=== PATIENT | male | born 1965 | race Caucasian/White ===

== ENCOUNTER 2025-01-11 14:38 | Emergency (ER) | payer OTHER ==
[2025-01-11 14:47] VITALS: RESP 18
--- NOTE | 2025-01-11 14:58 | ED ---
Seizure HPI - General Chief Complaint: Seizure Stated Complaint: Seizure Time Seen by Provider: 01/11/25 14:49 Source: patient, RN notes reviewed Mode of arrival: EMS Limitations: no limitations - History of Present Illness Initial Comments: 59-year-old male with history of epilepsy and polysubstance abuse presenting to the emergency department via EMS from [facility] with concerns for a seizure. States that he had a Absent unwitnessed seizure this morning and he states that he had 1 yesterday evening as well. On first evaluation the patient is requesting discharge back to [facility]. States history of seizures and states that he normally does not take his antiepileptic medications while he is "using "and believes that he may not have taken these medications in the past 4 to 6 weeks. States that he does have the medications that have been administered to him while he has been at [facility]. Last where he normally drinks a pint to 1/5 of vodka per day. Currently patient states that he is feeling okay and endorses a mild headache. He denies fevers, chills, nausea, visual disturbances, dyspnea, abdominal pain. - Related Data Home Medications Medication Instructions Recorded Confirmed Acetaminophen Tab [Tylenol] 650 mg PO Q4H PRN 01/11/25 01/11/25 Apixaban [Eliquis] 5 mg PO BID 01/11/25 01/11/25 Ativan Injection 1 - 2 mg IM Q4H 01/11/25 01/11/25 Atorvastatin [Lipitor] 40 mg PO HS 01/11/25 01/11/25 Calcium Phos/D3/Magnesium/Zinc 1 tab PO TID PRN 01/11/25 01/11/25 [Yqeubdb-Yqg-Tqqn-Vitamin D3] Cariprazine HCl [Vraylar] 3 mg PO DAILY 01/11/25 01/11/25 Chlorpheniramine Maleate 4 mg PO Q4H PRN 01/11/25 01/11/25 [Chlor-Trimeton] Divalproex ER [Depakote ER] 1,000 mg PO BID 01/11/25 01/11/25 Ferrous Sulfate [Feosol] 325 mg PO Q2D 01/11/25 01/11/25 Furosemide [Lasix] 40 mg PO DAILY 01/11/25 01/11/25 Gabapentin 900 mg PO TID 01/11/25 01/11/25 LORazepam [Ativan] 1 - 2 mg PO Q4H 01/11/25 01/11/25 Loperamide [Imodium] 4 mg PO QID PRN 01/11/25 01/11/25 Metoprolol Tartrate [Lopressor] 100 mg PO BID 01/11/25 01/11/25 Mylanta 30 ml PO Q4H PRN 01/11/25 01/11/25 Topiramate [Topamax] 100 mg PO BID 01/11/25 01/11/25 metFORMIN HCL [Glucophage] 500 mg PO BID 01/11/25 01/11/25 ondansetron HCL [Zofran] 8 mg PO Q6H PRN 01/11/25 01/11/25 traZODone HCL [Desyrel] 50 mg PO HS PRN 01/11/25 01/11/25 Allergies Allergy/AdvReac Type Severity Reaction Status Date / Time Penicillins Allergy Unknown Verified 01/11/25 16:46 Childhood Review of Systems ROS Statement: Those systems with pertinent positive or pertinent negative responses have been documented in the HPI. ROS Other: All systems not noted in ROS Statement are negative. Past Medical History Past Medical History: Diabetes Mellitus, Hyperlipidemia, Hypertension, Seizure Disorder Additional Past Medical History / Comment(s): SVT History of Any Multi-Drug Resistant Organisms: None Reported Past Surgical History: No Surgical Hx Reported Past Psychological History: Anxiety Smoking Status: Current every day smoker Past Alcohol Use History: Abuse, Daily Past Drug Use History: Cocaine, Heroin, Marijuana, Methamphetamine General Exam Limitations: no limitations General appearance: alert, in no apparent distress Eye exam: Present: normal appearance, PERRL, EOMI. Absent: scleral icterus, conjunctival injection, periorbital swelling Neck exam: Present: normal inspection. Absent: tenderness, meningismus, lymphadenopathy Respiratory exam: Present: normal lung sounds bilaterally. Absent: respiratory distress, wheezes, rales, rhonchi, stridor Cardiovascular Exam: Present: regular rate, normal rhythm, normal heart sounds. Absent: systolic murmur, diastolic murmur, rubs, gallop, clicks GI/Abdominal exam: Present: soft, normal bowel sounds. Absent: distended, tenderness, guarding, rebound, rigid Extremities exam: Present: normal inspection, full ROM, normal capillary refill. Absent: tenderness, pedal edema, joint swelling, calf tenderness Back exam: Present: normal inspection Neurological exam: Present: alert, oriented X3, CN II-XII intact Skin exam: Present: warm, dry, intact, normal color. Absent: rash Course Vital Signs 01/11/25 01/11/25 01/11/25 14:41 16:20 18:04 Temperature 97.8 F 98.1 F Pulse Rate 104 H 96 98 Respiratory 18 18 18 Rate Blood Pressure 128/102 117/83 130/95 O2 Sat by Pulse 98 97 99 Oximetry Medical Decision Making - Medical Decision Making Was pt. sent in by a medical professional or institution (, PA, [employer]IM[employer] CASHIER, urgent care, hospital, or senior care...) When possible be specific @ -No Did you speak to anyone other than the patient for history (EMS, parent, family, police, friend...)? What history was obtained from this source @ -No Did you review nursing and triage notes (agree or disagree)? Why? @ -I reviewed and agree with nursing and triage notes Were old charts reviewed (outside hosp., previous admission, EMS record, old EKG, old radiological studies, urgent care reports/EKG's, senior care records)? Report findings @ -No old charts were reviewed Differential Diagnosis (chest pain, altered mental status, abdominal pain women, abdominal pain men, vaginal bleeding, weakness, fever, dyspnea, syncope, headache, dizziness, GI bleed, back pain, seizure, CVA, palpatations, mental health, musculoskeletal)? @ -Differential Seizure: Recurrent seizure disorder, febrile seizure, alcohol withdrawal, stimulants, meningitis, encephalitis, intercranial hemorrhage, intracranial tumor, stroke, eclampsia, thyrotoxicosis, hypocalcemia, hyponatremia, hypernatremia, hypomagnesemia, psychogenic, this is not meant to be an all-inclusive list. EKG interpreted by me (3pts min.). @ -Completed at 1446 reveals sinus arrhythmia with a noted ventricular rate of 102, QRS 137, QT 418, QTc 477. X-rays interpreted by me (1pt min.). @ -None done CT interpreted by me (1pt min.). @ -None done U/S interpreted by me (1pt. min.). @ -None done What testing was considered but not performed or refused? (CT, X-rays, U/S, labs)? Why? @ -CT imaging of the brain was considered but deferred as patient does have a history of seizures and has been off his medications. What meds were considered but not given or refused? Why? @ -None Did you discuss the management of the patient with other professionals (professionals i.e. , PA, [employer] C[employer]IER, lab, RT, psych nurse, psych social worker, office support, teacher, commissioned defence force officer, telephonic case manager)? Give summary @ -No Was smoking cessation discussed for >3mins.? @ -No Was critical care preformed (if so, how long)? @ -No Were there social determinants of health that impacted care today? How? (Homelessness, low income, unemployed, alcoholism, drug addiction, transportation, low edu. Level, literacy, decrease access to med. care, custodial, rehab)? @ -No Was there de-escalation of care discussed even if they declined (Discuss DNR or withdrawal of care, Hospice)? DNR status @ -No What co-morbidities impacted this encounter? (DM, HTN, Smoking, COPD, CAD, Cancer, CVA, ARF, Chemo, Hep., AIDS, mental health diagnosis, sleep apnea, morbid obesity)? @ -None Was patient admitted / discharged? Hospital course, mention meds given and route, prescriptions, significant lab abnormalities, going to OR and other pertinent info. @ -Discharge. 59-year-old male presents emergency department via EMS for complaints of a seizure. Patient is hypertensive on arrival with blood pressure 120/102 overall he is well-appearing in no signs of distress. EKG is in sinus rhythm. Patient is alert and oriented x 4. Patient is provided with IV fluids and a loading dose of Keppra and Ativan. Testing including CBC, CMP, serum alcohol is unremarkable. Patient has mildly low magnesium 1.5 is provided with oral oversupplementation. On reevaluation after fluids and medications patient is resting company examination but is requesting discharge. The patient is comfortable for discharge as he has had no seizures while in the emergency department does have a history of seizures and has been provided with antiepileptic medication as he currently mentation center. Patient's blood pressure has stabilized to 130/95. Case has been discussed with my attending Dr. Hicks Undiagnosed new problem with uncertain prognosis? @ -No Drug Therapy requiring intensive monitoring for toxicity (Heparin, Nitro, Insulin, Cardizem)? @ -No Were any procedures done? @ -No Diagnosis/symptom? @ -seizure in a patient with known epilepsy Acute, or Chronic, or Acute on Chronic? @ -acute Uncomplicated (without systemic symptoms) or Complicated (systemic symptoms)? @ -uncomplicated Side effects of treatment? @ -No Exacerbation, Progression, or Severe Exacerbation? @ -No Poses a threat to life or bodily function? How? (Chest pain, USA, GA, pneumonia, PE, COPD, DKA, ARF, appy, cholecystitis, CVA, Diverticulitis, Homicidal, Suicidal, threat to staff... and all critical care pts) @ -No - Lab Data Result diagrams: 01/11/25 14:45 01/11/25 14:45 Lab Results 01/11/25 01/11/25 Range/Units 14:45 14:45 WBC 7.11 (4.50-10.00) 10*3/uL RBC 5.07 (4.40-5.60) 10*6/uL Hgb 14.2 (13.0-17.0) g/dL Hct 44.8 (39.6-50.0) % MCV 88.4 (80.0-97.0) fL MCH 28.0 (27.0-32.0) pg MCHC 31.7 L (32.0-37.0) g/dL Plt Count 179 (140-440) 10*3/uL MPV 10.4 (9.5-12.2) fL Immature Gran % (Auto) 0.4 % Neutrophils % 59.4 % Lymphocytes % 28.0 % Monocytes % 7.3 % Eosinophils % 4.5 % Basophils % 0.4 % Immature Gran # 0.03 (0.00-0.04) 10*3/uL Neutrophils # 4.22 (1.80-7.70) 10*3/uL Lymphocytes # 1.99 (0.90-5.00) 10*3/uL Monocytes # 0.52 (0.20-1.00) 10*3/uL Eosinophils # 0.32 (0.04-0.35) 10*3/uL Basophils # 0.03 (0.00-0.10) 10*3/uL Sodium 142 (137-145) mmol/L Potassium 3.9 (3.5-5.1) mmol/L Chloride 104 (98-107) mmol/L Carbon Dioxide 31 H (22-30) mmol/L Anion Gap 7 mmol/L BUN 16 (9-20) mg/dL Creatinine 1.06 (0.66-1.25) mg/dL Est GFR (CKD-EPI)AfAm >90 (>60 ml/min/1.73 sqM) Est GFR (CKD-EPI)NonAf 78 (>60 ml/min/1.73 sqM) Glucose 71 L (74-99) mg/dL Calcium 9.8 (8.4-10.2) mg/dL Magnesium 1.5 L (1.6-2.3) mg/dL Total Bilirubin 0.4 (0.2-1.3) mg/dL AST 18 (17-59) U/L ALT 20 (4-49) U/L Alkaline Phosphatase 85 (38-126) U/L Total Protein 6.6 (6.3-8.2) g/dL Albumin 3.9 (3.5-5.0) g/dL Serum Alcohol <10 mg/dL Disposition Clinical Impression: Seizure Disposition: HOME SELF-CARE Condition: Stable Instructions (If sedation given, give patient instructions): Recurrent Seizures in Adults (ED) Additional Instructions: Please return to the Emergency Department if symptoms worsen or any other concerns. Is patient prescribed a controlled substance at d/c from ED?: No Referrals: None,Stated [Primary Care Provider] - 1-2 days Time of Disposition: 17:37
[2025-01-11 15:02] LABS: Basophils # (A) 0.03 10*3/uL (0.00-0.10); Basophils % (A) 0.4 %; Eosinophils # (A) 0.32 10*3/uL (0.04-0.35); Eosinophils % (A) 4.5 %; HCT 44.8 % (39.6-50.0); HGB 14.2 g/dL (13.0-17.0); Lymphocytes # (A) 1.99 10*3/uL (0.90-5.00); MCHC 31.7 g/dL (32.0-37.0); MCV 88.4 fL (80.0-97.0); Mean Platelet Volume 10.4 fL (9.5-12.2); Monocytes # (A) 0.52 10*3/uL (0.20-1.00); Monocytes % (A) 7.3 %; Neutrophils # (A) 4.22 10*3/uL (1.80-7.70); Neutrophils % (A) 59.4 %; Platelet Count 179 10*3/uL (140-440); RBC 5.07 10*6/uL (4.40-5.60); RDW 15.2 % (11.5-14.5); WBC 7.11 10*3/uL (4.50-10.00)
[2025-01-11 15:20] LABS: ALT 20 U/L (4-49); AST 18 U/L (17-59); African American GFR (CKD) >90 (>60 ml/min/1.73 sqM); Albumin 3.9 g/dL (3.5-5.0); Alcohol <10 mg/dL; Alkaline Phosphatase 85 U/L (38-126); Anion Gap 7 mmol/L; Blood Urea Nitrogen 16 mg/dL (9-20); Calcium 9.8 mg/dL (8.4-10.2); Carbon Dioxide 31 mmol/L (22-30); Chloride 104 mmol/L (98-107); Glucose 71 mg/dL (74-99); Magnesium 1.5 mg/dL (1.6-2.3); Non-African American GFR(CKD) 78 (>60 ml/min/1.73 sqM); Potassium 3.9 mmol/L (3.5-5.1); Sodium 142 mmol/L (137-145); Total Bilirubin 0.4 mg/dL (0.2-1.3); Total Protein 6.6 g/dL (6.3-8.2)
[2025-01-11] MEDS: SODIUM CHLORIDE 0.9% 1,000 ML IV STA (15:25)
[2025-01-11] MEDS: LORazepam 1 MG/0.5 ML VIAL IV STA (15:25)
[2025-01-11] MEDS: levETIRAcetam IV 500 MG/5 ML VIAL IVP STA (15:28)
[2025-01-11] MEDS: MAGNESIUM OXIDE 400 MG TAB PO STA (16:33)
[2025-01-11 18:06] VITALS: BP 130/95; PULSE 98; TEMP 98.1
== END 2025-01-11 18:13 | disposition home or self-care (01) ==
LOC: EC 14:38
DX: R56.9 Unspecified convulsions (principal); F17.200 Nicotine dependence, unspecified, uncomplicated; Z88.0 Allergy status to penicillin
CPT/HCPCS: 93005; 80053; 83735; 85025; 99284; 96374; 96375; 96361; G0480; J2060; J1953; 36415; 80320

== ENCOUNTER 2025-01-12 01:37 | Observation (INO) | payer OTHER ==
[2025-01-12 01:49] VITALS: TEMP 97.9
--- NOTE | 2025-01-12 02:41 | ED ---
General Adult HPI - General Chief complaint: Recheck/Abnormal Lab/Rx Stated complaint: Fatigue Time Seen by Provider: 01/12/25 01:42 Source: EMS Mode of arrival: EMS Limitations: altered mental status - History of Present Illness Initial comments: This patient is 59-year-old man who is sent here from [facility] to be evaluated for altered mental status. The patient staying there for rehab. The patient tonight was in bed and staff sent notes stating that they had tried to wake him for evening check and they could barely arouse him. He required vigorous sternal rub to arouse and then he was somewhat combative and resistant to their attempts to wake him. The patient on arrival was more alert. He was able to stand up and go from the EMS stretcher to the bed here. He was able to give a urine specimen. I went and reevaluated him sometime later in the patient was again very somnolent. He would briefly awaken to tactile stimulus, open his eyes and then go back to sleep. He did speak some intelligible words but was not able to appropriately answer questions. - Related Data Home Medications Medication Instructions Recorded Confirmed Acetaminophen Tab [Tylenol] 650 mg PO Q4H PRN 01/11/25 01/11/25 Apixaban [Eliquis] 5 mg PO BID 01/11/25 01/11/25 Ativan Injection 1 - 2 mg IM Q4H 01/11/25 01/11/25 Atorvastatin [Lipitor] 40 mg PO HS 01/11/25 01/11/25 Calcium Phos/D3/Magnesium/Zinc 1 tab PO TID PRN 01/11/25 01/11/25 [Bjtpjdf-Kzw-Acip-Vitamin D3] Cariprazine HCl [Vraylar] 3 mg PO DAILY 01/11/25 01/11/25 Chlorpheniramine Maleate 4 mg PO Q4H PRN 01/11/25 01/11/25 [Chlor-Trimeton] Divalproex ER [Depakote ER] 1,000 mg PO BID 01/11/25 01/11/25 Ferrous Sulfate [Feosol] 325 mg PO Q2D 01/11/25 01/11/25 Furosemide [Lasix] 40 mg PO DAILY 01/11/25 01/11/25 Gabapentin 900 mg PO TID 01/11/25 01/11/25 LORazepam [Ativan] 1 - 2 mg PO Q4H 01/11/25 01/11/25 Loperamide [Imodium] 4 mg PO QID PRN 01/11/25 01/11/25 Metoprolol Tartrate [Lopressor] 100 mg PO BID 01/11/25 01/11/25 Mylanta 30 ml PO Q4H PRN 01/11/25 01/11/25 Topiramate [Topamax] 100 mg PO BID 01/11/25 01/11/25 metFORMIN HCL [Glucophage] 500 mg PO BID 01/11/25 01/11/25 ondansetron HCL [Zofran] 8 mg PO Q6H PRN 01/11/25 01/11/25 traZODone HCL [Desyrel] 50 mg PO HS PRN 01/11/25 01/11/25 Allergies Allergy/AdvReac Type Severity Reaction Status Date / Time Penicillins Allergy Unknown Verified 01/11/25 16:46 Childhood Review of Systems ROS Statement: Those systems with pertinent positive or pertinent negative responses have been documented in the HPI. ROS Other: All systems not noted in ROS Statement are negative. Past Medical History Past Medical History: Diabetes Mellitus, Hyperlipidemia, Hypertension, Seizure Disorder Additional Past Medical History / Comment(s): SVT History of Any Multi-Drug Resistant Organisms: None Reported Past Surgical History: No Surgical Hx Reported Past Psychological History: Anxiety Smoking Status: Current every day smoker Past Alcohol Use History: Abuse, Daily Past Drug Use History: Cocaine, Heroin, Marijuana, Methamphetamine General Exam General appearance: obtunded Head exam: Present: atraumatic, normocephalic Eye exam: Present: normal appearance, PERRL, EOMI. Absent: scleral icterus, conjunctival injection, nystagmus ENT exam: Present: mucous membranes dry Neck exam: Absent: tenderness, meningismus Respiratory exam: Present: normal lung sounds bilaterally. Absent: respiratory distress, wheezes, rales, rhonchi, stridor, accessory muscle use Cardiovascular Exam: Present: regular rate, normal rhythm, normal heart sounds. Absent: systolic murmur, diastolic murmur, rubs, gallop GI/Abdominal exam: Present: soft. Absent: distended, tenderness, guarding, rebound, rigid, mass Extremities exam: Present: normal inspection, normal capillary refill. Absent: pedal edema, calf tenderness Neurological exam: Present: altered, motor sensory deficit Skin exam: Present: warm, dry, intact, normal color. Absent: rash Course Vital Signs 01/12/25 01/12/25 01/12/25 01:39 05:18 06:37 Temperature 97.9 F Pulse Rate 68 65 65 Respiratory 16 18 18 Rate Blood Pressure 121/86 111/87 127/93 O2 Sat by Pulse 97 97 97 Oximetry Medical Decision Making - Medical Decision Making Patient is 59-year-old man sent from [facility] because he was difficult to arouse. The patient here is very somnolent and arouses only with vigorous stimulus. He will answer with a few short words though occasionally confused and inappropriate. No focal deficits but the patient is too somnolent to go back to the rehab facility. The workup here unremarkable. Will admit to have further evaluation. - Lab Data Result diagrams: 01/12/25 03:10 01/12/25 03:10 Lab Results 01/12/25 01/12/25 01/12/25 Range/Units 03:09 03:10 03:10 WBC 6.37 (4.50-10.00) 10*3/uL RBC 5.00 (4.40-5.60) 10*6/uL Hgb 14.1 (13.0-17.0) g/dL Hct 44.1 (39.6-50.0) % MCV 88.2 (80.0-97.0) fL MCH 28.2 (27.0-32.0) pg MCHC 32.0 (32.0-37.0) g/dL Plt Count 177 (140-440) 10*3/uL MPV 10.8 (9.5-12.2) fL Immature Gran % (Auto) 0.2 % Neutrophils % 52.7 % Lymphocytes % 35.0 % Monocytes % 6.6 % Eosinophils % 5.2 % Basophils % 0.3 % Immature Gran # 0.01 (0.00-0.04) 10*3/uL Neutrophils # 3.36 (1.80-7.70) 10*3/uL Lymphocytes # 2.23 (0.90-5.00) 10*3/uL Monocytes # 0.42 (0.20-1.00) 10*3/uL Eosinophils # 0.33 (0.04-0.35) 10*3/uL Basophils # 0.02 (0.00-0.10) 10*3/uL PT 11.4 (10.0-12.5) sec INR 1.0 (<1.2) APTT 24.7 (22.0-30.0) sec Sodium (137-145) mmol/L Potassium (3.5-5.1) mmol/L Chloride (98-107) mmol/L Carbon Dioxide (22-30) mmol/L Anion Gap mmol/L BUN (9-20) mg/dL Creatinine (0.66-1.25) mg/dL Est GFR (CKD-EPI)AfAm (>60 ml/min/1.73 sqM) Est GFR (CKD-EPI)NonAf (>60 ml/min/1.73 sqM) Glucose (74-99) mg/dL POC Glucose (mg/dL) 93 (70-110) mg/dL POC Glu Tour Operator ID Fito [place]ura Calcium (8.4-10.2) mg/dL Total Bilirubin (0.2-1.3) mg/dL AST (17-59) U/L ALT (4-49) U/L Alkaline Phosphatase (38-126) U/L Ammonia (<30) umol/L Troponin I (0.000-0.034) ng/mL Total Protein (6.3-8.2) g/dL Albumin (3.5-5.0) g/dL Serum Alcohol mg/dL 01/12/25 01/12/25 01/12/25 Range/Units 03:10 03:10 03:10 WBC (4.50-10.00) 10*3/uL RBC (4.40-5.60) 10*6/uL Hgb (13.0-17.0) g/dL Hct (39.6-50.0) % MCV (80.0-97.0) fL MCH (27.0-32.0) pg MCHC (32.0-37.0) g/dL Plt Count (140-440) 10*3/uL MPV (9.5-12.2) fL Immature Gran % (Auto) % Neutrophils % % Lymphocytes % % Monocytes % % Eosinophils % % Basophils % % Immature Gran # (0.00-0.04) 10*3/uL Neutrophils # (1.80-7.70) 10*3/uL Lymphocytes # (0.90-5.00) 10*3/uL Monocytes # (0.20-1.00) 10*3/uL Eosinophils # (0.04-0.35) 10*3/uL Basophils # (0.00-0.10) 10*3/uL PT (10.0-12.5) sec INR (<1.2) APTT (22.0-30.0) sec Sodium 141 (137-145) mmol/L Potassium 4.0 (3.5-5.1) mmol/L Chloride 105 (98-107) mmol/L Carbon Dioxide 28 (22-30) mmol/L Anion Gap 8 mmol/L BUN 18 (9-20) mg/dL Creatinine 0.92 (0.66-1.25) mg/dL Est GFR (CKD-EPI)AfAm >90 (>60 ml/min/1.73 sqM) Est GFR (CKD-EPI)NonAf >90 (>60 ml/min/1.73 sqM) Glucose 92 (74-99) mg/dL POC Glucose (mg/dL) (70-110) mg/dL POC Glu Tour Operator ID Calcium 9.5 (8.4-10.2) mg/dL Total Bilirubin 0.5 (0.2-1.3) mg/dL AST 21 (17-59) U/L ALT 20 (4-49) U/L Alkaline Phosphatase 77 (38-126) U/L Ammonia 28 (<30) umol/L Troponin I <0.012 (0.000-0.034) ng/mL Total Protein 6.3 (6.3-8.2) g/dL Albumin 3.5 (3.5-5.0) g/dL Serum Alcohol <10 mg/dL Disposition Clinical Impression: Altered mental status Disposition: ADMITTED IP TO THIS HOSP Condition: Fair Is patient prescribed a controlled substance at d/c from ED?: No Referrals: None,Stated [Primary Care Provider] - 1-2 days
[2025-01-12 03:10] LABS: Glucose,Whole Blood 93 mg/dL (70-110)
--- NOTE | 2025-01-12 03:17 | CT ---
EXAM: CT Head Without Intravenous Contrast CLINICAL HISTORY: ITS.REASON CT Reason: Altered mental status TECHNIQUE: Axial computed tomography images of the head/brain without intravenous contrast. CTDI is 49.1 mGy and DLP is 1182.4 mGy-cm. This CT exam was performed using one or more of the following dose reduction techniques: automated exposure control, adjustment of the mA and/or kV according to patient size, and/or use of iterative reconstruction technique. COMPARISON: No relevant prior studies available. FINDINGS: No acute intracranial hemorrhage. No midline shift or mass effect. The territorial cote-white matter differentiation is maintained throughout. The ventricles and sulci are commensurate with age. The visualized orbits appear grossly unremarkable. The calvarium is intact. The visualized paranasal sinuses and mastoid air cells are grossly clear. IMPRESSION: No acute intracranial hemorrhage, midline shift, or mass effect.
[2025-01-12 03:42] LABS: Basophils # (A) 0.02 10*3/uL (0.00-0.10); Basophils % (A) 0.3 %; Eosinophils # (A) 0.33 10*3/uL (0.04-0.35); Eosinophils % (A) 5.2 %; HCT 44.1 % (39.6-50.0); HGB 14.1 g/dL (13.0-17.0); Lymphocytes # (A) 2.23 10*3/uL (0.90-5.00); MCH 28.2 pg (27.0-32.0); MCV 88.2 fL (80.0-97.0); Mean Platelet Volume 10.8 fL (9.5-12.2); Monocytes # (A) 0.42 10*3/uL (0.20-1.00); Monocytes % (A) 6.6 %; Neutrophils # (A) 3.36 10*3/uL (1.80-7.70); Neutrophils % (A) 52.7 %; Platelet Count 177 10*3/uL (140-440); RDW 15.3 % (11.5-14.5); WBC 6.37 10*3/uL (4.50-10.00)
[2025-01-12 03:47] LABS: Partial Thromboplastin Time 24.7 sec (22.0-30.0); Prothrombin Time 11.4 sec (10.0-12.5)
[2025-01-12 03:51] LABS: ALT 20 U/L (4-49); AST 21 U/L (17-59); African American GFR (CKD) >90 (>60 ml/min/1.73 sqM); Albumin 3.5 g/dL (3.5-5.0); Alcohol <10 mg/dL; Alkaline Phosphatase 77 U/L (38-126); Anion Gap 8 mmol/L; Blood Urea Nitrogen 18 mg/dL (9-20); Calcium 9.5 mg/dL (8.4-10.2); Carbon Dioxide 28 mmol/L (22-30); Chloride 105 mmol/L (98-107); Glucose 92 mg/dL (74-99); Non-African American GFR(CKD) >90 (>60 ml/min/1.73 sqM); Sodium 141 mmol/L (137-145); Total Bilirubin 0.5 mg/dL (0.2-1.3); Total Protein 6.3 g/dL (6.3-8.2)
[2025-01-12] MEDS ORDERED: NALOXONE 0.4 MG/ML 1 ML VIAL IV PRN (08:15)
[2025-01-12] MEDS ORDERED: ACETAMINOPHEN TAB 325 MG TAB PO PRN (08:15)
[2025-01-12] MEDS ORDERED: MAG HYDROX/AL HYDROX/SIMETH 30 ML CUP PO PRN (08:15)
--- NOTE | 2025-01-12 09:37 | P.CNNES ---
History of Present Illness Consult date: 01/12/25 History of Present Illness: The patient is a 59-year-old male who was attempted to be seen in neurologic consultation, on January 12, 2025, in collaboration with Meg López, via teleneurology. The patient reports that he is in the emergency department because he had a seizure. He denies tongue biting and loss of bowel or bladder control. The patient is a poor historian. He is uncooperative. He does report however, that he has a seizure, "when I get nervous, high or drunk". The patient was reportedly in drug rehab and was found to be unresponsive. In review of the chart, the patient was also in the emergency department yesterday, and left. He came back late last night. He is unable to give me any other history regarding his seizures. He does report that he has had seizures "all of my life". CT scan of the brain was performed. There is no reported evidence of acute hemorrhage or infarct. Laboratory evaluation is essentially negative. Depakote level was not checked. The patient reportedly takes Depakote for his seizures. He says he has been receiving Depakote, while in the drug rehab program. He reports that he has not had any alcohol in 2 days. The patient continues to focus on "when am I going to get back there". He is not cooperative with examination. He is angry and cussing. Past Medical History Past Medical History: Diabetes Mellitus, Hyperlipidemia, Hypertension, Seizure Disorder Additional Past Medical History / Comment(s): SVT History of Any Multi-Drug Resistant Organisms: None Reported Past Surgical History: No Surgical Hx Reported Past Psychological History: Anxiety Smoking Status: Current every day smoker Past Alcohol Use History: Abuse, Daily Past Drug Use History: Cocaine, Heroin, Marijuana, Methamphetamine Medications and Allergies Home Medications Medication Instructions Recorded Confirmed Type Acetaminophen Tab [Tylenol] 650 mg PO Q4H PRN 01/11/25 01/11/25 History Apixaban [Eliquis] 5 mg PO BID 01/11/25 01/11/25 History Ativan Injection 1 - 2 mg IM Q4H 01/11/25 01/11/25 History Atorvastatin [Lipitor] 40 mg PO HS 01/11/25 01/11/25 History Calcium Phos/D3/Magnesium/Zinc 1 tab PO TID PRN 01/11/25 01/11/25 History [Ynjvrfc-Tuf-Cdni-Vitamin D3] Cariprazine HCl [Vraylar] 3 mg PO DAILY 01/11/25 01/11/25 History Chlorpheniramine Maleate 4 mg PO Q4H PRN 01/11/25 01/11/25 History [Chlor-Trimeton] Divalproex ER [Depakote ER] 1,000 mg PO BID 01/11/25 01/11/25 History Ferrous Sulfate [Feosol] 325 mg PO Q2D 01/11/25 01/11/25 History Furosemide [Lasix] 40 mg PO DAILY 01/11/25 01/11/25 History Gabapentin 900 mg PO TID 01/11/25 01/11/25 History LORazepam [Ativan] 1 - 2 mg PO Q4H 01/11/25 01/11/25 History Loperamide [Imodium] 4 mg PO QID PRN 01/11/25 01/11/25 History Metoprolol Tartrate [Lopressor] 100 mg PO BID 01/11/25 01/11/25 History Mylanta 30 ml PO Q4H PRN 01/11/25 01/11/25 History Topiramate [Topamax] 100 mg PO BID 01/11/25 01/11/25 History metFORMIN HCL [Glucophage] 500 mg PO BID 01/11/25 01/11/25 History ondansetron HCL [Zofran] 8 mg PO Q6H PRN 01/11/25 01/11/25 History traZODone HCL [Desyrel] 50 mg PO HS PRN 01/11/25 01/11/25 History Allergies Allergy/AdvReac Type Severity Reaction Status Date / Time Penicillins Allergy Unknown Verified 01/11/25 16:46 Childhood Physical Examination - Vital Signs Vital Signs: Vital Signs Temp Pulse Resp BP Pulse Ox 01/12/25 08:00 68 16 127/83 98 01/12/25 06:37 65 18 127/93 97 01/12/25 05:18 65 18 111/87 97 01/12/25 01:39 97.9 F 68 16 121/86 97 Intake and Output 01/11/25 01/12/25 01/12/25 22:59 06:59 14:59 Other: Weight 131.542 kg General: The patient is well-nourished, well-developed and in no acute distress. HEENT: Head is atraumatic, normocephalic. Fundus not visualized. There is no scleral icterus. Mucous membranes are moist. Neurological examination Mental status: Patient is awake, alert and oriented x 3. His speech is clear. There is no dysarthria or aphasia. The patient is very angry and uncooperative. He wishes to be discharged. He is asked multiple times if he is agreeable to a neurological examination he continues to state that he wants to know when he is going to be discharged. He then begins to talk about the fact that he has not received any food. He is not agreeable to neurological examination Results - Laboratory Findings CBC and BMP: 01/12/25 03:10 01/12/25 03:10 Assessment and Plan Assessment: 1. Possible breakthrough seizure versus drug abuse 2. Reported history of hypertension 3. Reported history of hyperlipidemia Plan: 1. Urine drug screen has been ordered 2. Depakote level should be ordered however the patient is not agreeable Time with Patient: Greater than 30 (40 minutes were spent caring for this patient today including, attempting to obtain a history, attempting to examine the patient, reviewing imaging, chart documentation, labs, placing orders and creating this note)
[2025-01-12 10:22] LABS: Cocaine Screen,Urine Detected (NotDetected); Opiate Screen,Urine Not Detected (NotDetected); Phencyclidine Screen,Urine Not Detected (NotDetected); Urn Cannabinoid Scrn Detected (NotDetected)
[2025-01-12 10:23] LABS: Amphetamine Screen,Urine Detected (NotDetected); Benzodiazepines Screen,Urine Detected (NotDetected)
[2025-01-12 10:24] LABS: Barbiturate Screen,Urine Detected (NotDetected); Methadone Screen, Urine Not Detected (NotDetected); Oxycodone Screen, Urine Not Detected (NotDetected); Tricyclic Antidepressant,Urine Not Detected (NotDetected)
[2025-01-12] MEDS: PANTOPRAZOLE 40 MG/10 ML VIAL IV SCH (10:32)
[2025-01-12] MEDS: SODIUM CHLORIDE 0.9% 1,000 ML IV SCH (10:33)
[2025-01-12] MEDS ORDERED: diphenhydrAMINE 25 MG CAP PO PRN (11:28)
[2025-01-12] MEDS: TOPIRAMATE 100 MG TAB PO SCH (11:56)
[2025-01-12] MEDS: DIVALPROEX ER 500 MG TAB.ER.24H PO SCH (11:56)
[2025-01-12] MEDS ORDERED: LOPERAMIDE 2 MG CAP PO PRN (12:18)
[2025-01-12] MEDS ORDERED: traZODone HCL 50 MG TAB PO PRN (12:18)
[2025-01-12] MEDS ORDERED: LORazepam 1 MG TAB PO SCH (12:30)
--- NOTE | 2025-01-12 12:32 | P.DS ---
Providers Date of admission: 01/12/25 08:15 Attending physician: Roseann Fan Consults: 01/12/25 08:15 Consult Physician Routine Consulting Provider: Meche Cooley Consult Reason/Comments: Altered mental status Do you want consulting provider notified?: Yes Primary care physician: Stated None Hospital Course: 59-year-old male was admitted for rehab altered mental status. There was a concern of seizure. Patient was sent in from [place] for agitation and altered mental status. Patient urine drug screen is positive for benzodiazepines barbiturates amphetamines methamphetamines cocaine and marijuana. Patient does have history of seizures is on Topamax and the Depakote along with gabapentin. Patient does not have a lactic acidosis or anion gap. Seizure was not witnessed by anyone but patient claims he has a seizure. Patient was belligerent to staff and neurologist who tried to evaluate the patient. Patient declined Depakote levels. When I evaluate the patient patient is alert oriented x 3 appropriate not malignant able to answer questions appropriately REVIEW OF SYSTEMS: All other systems are negative except those mentioned in the HPI PHYSICAL EXAMINATION: GENERAL: The patient is alert and oriented x3, not in any acute distress. Well developed, well nourished. HEENT: Pupils are round and equally reacting to light. EOMI. No scleral icterus. No conjunctival pallor. Normocephalic, atraumatic. No pharyngeal erythema. No thyromegaly. CARDIOVASCULAR: S1 and S2 present. No murmurs, rubs, or gallops. PULMONARY: Chest is clear to auscultation, no wheezing or crackles. ABDOMEN: Soft, nontender, nondistended, normoactive bowel sounds. No palpable organomegaly. MUSCULOSKELETAL: No joint swelling or deformity. EXTREMITIES: No cyanosis, clubbing, or pedal edema. NEUROLOGICAL: Gross neurological examination did not reveal any focal deficits. SKIN: No rashes. Assessment and plan -Agitation altered mental status secondary to multiple drug use patient is fairly sober now not agitated. My suspicion for seizures or breakthrough seizures is low patient will be discharged back to [facility]. - Seizure history patient was resumed on his home antiseizure medications - Drug abuse as mentioned above: Counseling was provided - Alcohol use - Type 2 diabetes mellitus - Hyperlipidemia - Hypertension - Seizure disorder - SVT/atrial fibrillation for which patient is on anticoagulation - Nicotine use: Counseling was provided Patient will not need any continued hospitalization patient will be discharged back to [facility] today patient received IV hydration patient clinically is not dehydrated Patient Condition at Discharge: Fair Plan - Discharge Summary New Discharge Prescriptions: Continue Chlorpheniramine Maleate [Chlor-Trimeton] 4 mg PO Q4H PRN PRN Reason: Allergy Symptoms Ativan Injection 1 - 2 mg IM Q4H LORazepam [Ativan] 1 - 2 mg PO Q4H traZODone HCL [Desyrel] 50 mg PO HS PRN PRN Reason: Insomnia Gabapentin 900 mg PO TID Ferrous Sulfate [Iron (65 MG Elemental)] 325 mg PO Q2D Apixaban [Eliquis] 5 mg PO BID ondansetron HCL [Zofran] 8 mg PO Q6H PRN PRN Reason: Nausea Mylanta 30 ml PO Q4H PRN PRN Reason: Gi Upset Loperamide [Imodium] 4 mg PO QID PRN PRN Reason: Diarrhea Acetaminophen Tab [Tylenol] 650 mg PO Q4H PRN PRN Reason: Pain Calcium Phos/D3/Magnesium/Zinc [Ykjtxfo-Bea-Thnt-Vitamin D3] 1 tab PO TID PRN PRN Reason: muscle cramps Cariprazine HCl [Vraylar] 3 mg PO DAILY Topiramate [Topamax] 100 mg PO BID Metoprolol Tartrate [Lopressor] 100 mg PO BID-W/MEALS metFORMIN HCL [Glucophage] 500 mg PO BID Furosemide [Lasix] 40 mg PO DAILY Atorvastatin [Lipitor] 40 mg PO HS Divalproex ER [Depakote ER] 1,000 mg PO BID Discharge Medication List Acetaminophen Tab [Tylenol] 650 mg PO Q4H PRN 01/11/25 [History] Apixaban [Eliquis] 5 mg PO BID 01/11/25 [History] Ativan Injection 1 - 2 mg IM Q4H 01/11/25 [History] Atorvastatin [Lipitor] 40 mg PO HS 01/11/25 [History] Calcium Phos/D3/Magnesium/Zinc [Qrfsclb-Xzt-Hbyx-Vitamin D3] 1 tab PO TID PRN 01/11/25 [History] Cariprazine HCl [Vraylar] 3 mg PO DAILY 01/11/25 [History] Chlorpheniramine Maleate [Chlor-Trimeton] 4 mg PO Q4H PRN 01/11/25 [History] Divalproex ER [Depakote ER] 1,000 mg PO BID 01/11/25 [History] Ferrous Sulfate [Iron (65 MG Elemental)] 325 mg PO Q2D 01/11/25 [History] Furosemide [Lasix] 40 mg PO DAILY 01/11/25 [History] Gabapentin 900 mg PO TID 01/11/25 [History] LORazepam [Ativan] 1 - 2 mg PO Q4H 01/11/25 [History] Loperamide [Imodium] 4 mg PO QID PRN 01/11/25 [History] Metoprolol Tartrate [Lopressor] 100 mg PO BID-W/MEALS 01/11/25 [History] Mylanta 30 ml PO Q4H PRN 01/11/25 [History] Topiramate [Topamax] 100 mg PO BID 01/11/25 [History] metFORMIN HCL [Glucophage] 500 mg PO BID 01/11/25 [History] ondansetron HCL [Zofran] 8 mg PO Q6H PRN 01/11/25 [History] traZODone HCL [Desyrel] 50 mg PO HS PRN 01/11/25 [History] Follow up Appointment(s)/Referral(s): None,Stated [Primary Care Provider] - 1-2 days Discharge Disposition: OTHER INSTITUTION NOT DEFINED
--- NOTE | 2025-01-12 12:32 | P.HPIM ---
History of Present Illness 59-year-old male was admitted for rehab altered mental status. There was a concern of seizure. Patient was sent in from [place] for agitation and altered mental status. Patient urine drug screen is positive for benzodiazepines barbiturates amphetamines methamphetamines cocaine and marijuana. Patient does have history of seizures is on Topamax and the Depakote along with gabapentin. Patient does not have a lactic acidosis or anion gap. Seizure was not witnessed by anyone but patient claims he has a seizure. Patient was belligerent to staff and neurologist who tried to evaluate the patient. Patient declined Depakote levels. When I evaluate the patient patient is alert oriented x 3 appropriate not malignant able to answer questions appropriately REVIEW OF SYSTEMS: All other systems are negative except those mentioned in the HPI PHYSICAL EXAMINATION: GENERAL: The patient is alert and oriented x3, not in any acute distress. Well developed, well nourished. HEENT: Pupils are round and equally reacting to light. EOMI. No scleral icterus. No conjunctival pallor. Normocephalic, atraumatic. No pharyngeal erythema. No thyromegaly. CARDIOVASCULAR: S1 and S2 present. No murmurs, rubs, or gallops. PULMONARY: Chest is clear to auscultation, no wheezing or crackles. ABDOMEN: Soft, nontender, nondistended, normoactive bowel sounds. No palpable organomegaly. MUSCULOSKELETAL: No joint swelling or deformity. EXTREMITIES: No cyanosis, clubbing, or pedal edema. NEUROLOGICAL: Gross neurological examination did not reveal any focal deficits. SKIN: No rashes. Assessment and plan -Agitation altered mental status secondary to multiple drug use patient is fairly sober now not agitated. My suspicion for seizures or breakthrough seizures is low patient will be discharged back to [facility]. - Seizure history patient was resumed on his home antiseizure medications - Drug abuse as mentioned above: Counseling was provided - Alcohol use - Type 2 diabetes mellitus - Hyperlipidemia - Hypertension - Seizure disorder - SVT/atrial fibrillation for which patient is on anticoagulation - Nicotine use: Counseling was provided Patient will not need any continued hospitalization patient will be discharged back to [facility] today patient received IV hydration patient clinically is not dehydrated Past Medical History Past Medical History: Diabetes Mellitus, Hyperlipidemia, Hypertension, Seizure Disorder Additional Past Medical History / Comment(s): SVT History of Any Multi-Drug Resistant Organisms: None Reported Past Surgical History: No Surgical Hx Reported Past Psychological History: Anxiety Smoking Status: Current every day smoker Past Alcohol Use History: Abuse, Daily Past Drug Use History: Cocaine, Heroin, Marijuana, Methamphetamine Medications and Allergies Home Medications Medication Instructions Recorded Confirmed Type Acetaminophen Tab [Tylenol] 650 mg PO Q4H PRN 01/11/25 01/12/25 History Apixaban [Eliquis] 5 mg PO BID 01/11/25 01/12/25 History Ativan Injection 1 - 2 mg IM Q4H 01/11/25 01/12/25 History Atorvastatin [Lipitor] 40 mg PO HS 01/11/25 01/12/25 History Calcium Phos/D3/Magnesium/Zinc 1 tab PO TID PRN 01/11/25 01/12/25 History [Kqgqjdh-Rby-Vpci-Vitamin D3] Cariprazine HCl [Vraylar] 3 mg PO DAILY 01/11/25 01/12/25 History Chlorpheniramine Maleate 4 mg PO Q4H PRN 01/11/25 01/12/25 History [Chlor-Trimeton] Divalproex ER [Depakote ER] 1,000 mg PO BID 01/11/25 01/12/25 History Ferrous Sulfate [Iron (65 MG 325 mg PO Q2D 01/11/25 01/12/25 History Elemental)] Furosemide [Lasix] 40 mg PO DAILY 01/11/25 01/12/25 History Gabapentin 900 mg PO TID 01/11/25 01/12/25 History LORazepam [Ativan] 1 - 2 mg PO Q4H 01/11/25 01/12/25 History Loperamide [Imodium] 4 mg PO QID PRN 01/11/25 01/12/25 History Metoprolol Tartrate [Lopressor] 100 mg PO BID-W/MEALS 01/11/25 01/12/25 History Mylanta 30 ml PO Q4H PRN 01/11/25 01/12/25 History Topiramate [Topamax] 100 mg PO BID 01/11/25 01/12/25 History metFORMIN HCL [Glucophage] 500 mg PO BID 01/11/25 01/12/25 History ondansetron HCL [Zofran] 8 mg PO Q6H PRN 01/11/25 01/12/25 History traZODone HCL [Desyrel] 50 mg PO HS PRN 01/11/25 01/12/25 History Allergies Allergy/AdvReac Type Severity Reaction Status Date / Time Penicillins Allergy Unknown Verified 01/12/25 09:51 Childhood Physical Exam Vitals: Vital Signs Temp Pulse Resp BP Pulse Ox 01/12/25 08:00 68 16 127/83 98 01/12/25 06:37 65 18 127/93 97 01/12/25 05:18 65 18 111/87 97 01/12/25 01:39 97.9 F 68 16 121/86 97 Intake and Output 01/11/25 01/12/25 01/12/25 22:59 06:59 14:59 Other: Weight 131.542 kg Results CBC & Chem 7: 01/12/25 03:10 01/12/25 03:10 Labs: Abnormal Lab Results - Last 24 Hours (Table) 01/12/25 Range/Units 08:21 Ur Barbiturates Screen Detected H (NotDetected) Ur Amphetamines Screen Detected H (NotDetected) U Methamphetamines Scrn Detected H (NotDetected) U Benzodiazepines Scrn Detected H (NotDetected) Urine Cocaine Screen Detected H (NotDetected) U Marijuana (THC) Screen Detected H (NotDetected)
[2025-01-12] MEDS: METOPROLOL TARTRATE 50 MG TAB PO SCH (12:33)
[2025-01-12 12:42] VITALS: BP 158/89; PULSE 78; RESP 20
[2025-01-12] MEDS ORDERED: GABAPENTIN 300 MG CAP PO SCH (16:00)
[2025-01-12] MEDS ORDERED: APIXABAN 5 MG TAB PO SCH (21:00)
[2025-01-12] MEDS ORDERED: ATORVASTATIN 40 MG TAB PO SCH (21:00)
[2025-01-13] MEDS ORDERED: NON FORMULARY DRUG (Cariprazine Hcl [Vraylar] 3 MG Capsule) PO SCH (09:00)
== END 2025-01-12 12:43 | disposition other institution (70) ==
LOC: EC 01:37 → 4SSUR 08:15
PROVIDERS: ADMIT Hospitalist; ATTEND Hospitalist
DX: F13.10 Sedative, hypnotic or anxiolytic abuse, uncomplicated (principal); F14.10 Cocaine abuse, uncomplicated; F15.10 Other stimulant abuse, uncomplicated; F12.10 Cannabis abuse, uncomplicated; G40.909 Epilepsy, unspecified, not intractable, without status epilepticus; I10 Essential (primary) hypertension; E78.5 Hyperlipidemia, unspecified; E11.9 Type 2 diabetes mellitus without complications; I48.91 Unspecified atrial fibrillation; I47.10 Supraventricular tachycardia, unspecified; F17.200 Nicotine dependence, unspecified, uncomplicated; Z79.01 Long term (current) use of anticoagulants; Z79.84 Long term (current) use of oral hypoglycemic drugs; Z79.899 Other long term (current) drug therapy; Z88.0 Allergy status to penicillin; Z71.51 Drug abuse counseling and surveillance of drug abuser; Z71.6 Tobacco abuse counseling
CPT/HCPCS: 96361; 96374; 99285; 36415; 93005; 80053; 82140; 84484; 85025; 85610; 85730; 80306; 70450; G0378; G0480; J2470; 80320